=== PATIENT | female | born 1945 | race Caucasian/White ===

== ENCOUNTER 2016-05-10 16:28 | Outpatient (CLI) | payer OTHER | END 2016-05-10 16:29 | disposition home or self-care (01) | DX: S62.011A Displaced fracture of distal pole of navicular [scaphoid] bone of right wrist, initial encounter for closed fracture (principal) ==

== ENCOUNTER 2016-08-28 07:47 | Outpatient (CLI) | payer OTHER ==
[2016-08-28 08:11] LABS: BASOPHILS # (AUTO) 0.1 10^3/uL (0.0-0.1); BASOPHILS % (AUTO) 1.5 %; EOSINOPHILS # (AUTO) 0.1 10^3/uL (0.0-0.7); HGB - HEMOGLOBIN 14.3 g/dL (12.0-16.0); LYMPHOCYTES # (AUTO) 1.3 10^3/uL (1.5-3.5); MEAN CORPUSCULAR HEMOGLOBIN 29.8 pg (27.0-31.0); MEAN CORPUSCULAR HGB CONC 33.2 g/dL (32.0-36.0); MEAN CORPUSCULAR VOLUME 89.6 fL (81.0-99.0); MEAN PLATELET VOLUME 8.2 fL (7.9-10.8); MONOCYTES # (AUTO) 0.4 10^3/uL (0.0-1.0); MONOCYTES % (AUTO) 9.4 %; NEUTROPHILS % (AUTO) 53.1 %; NUCLEATED RED BLOOD CELLS AUTO 0.1 /100WBC; RED CELL DISTRIBUTION WIDTH 13.3 % (12.0-15.0); UNCORRECTED WHITE BLOOD COUNT 3.8 x10^3/uL; WHITE BLOOD COUNT 3.8 x10^3/uL (4.8-10.8)
[2016-08-28 08:21] LABS: ALBUMIN/GLOBULIN RATIO 1.6 (1.0-2.2); BILIRUBIN,TOTAL 0.6 mg/dL (0.2-1.0); CALCIUM 9.4 mg/dL (8.5-10.3); CREATININE 0.8 mg/dL (0.4-1.0); POTASSIUM 3.7 mmol/L (3.5-5.0); TOTAL PROTEIN 7.1 g/dL (6.7-8.2)
== END 2016-08-28 07:48 | disposition home or self-care (01) ==
LOC: LAB 07:47
PROVIDERS: ATTEND Nurse Practitioner Primary Care
DX: Z00.00 Encounter for general adult medical examination without abnormal findings (principal); E03.9 Hypothyroidism, unspecified
CPT/HCPCS: 36415; 80053; 84443; 85025

== ENCOUNTER 2017-09-05 07:55 | Outpatient (CLI) | payer OTHER ==
[2017-09-05 09:09] LABS: BASOPHILS % (AUTO) 1.1 %; EOSINOPHILS # (AUTO) 0.1 10^3/uL (0.0-0.7); EOSINOPHILS % (AUTO) 2.7 %; HGB - HEMOGLOBIN 14.6 g/dL (12.0-16.0); LYMPHOCYTES # (AUTO) 1.3 10^3/uL (1.5-3.5); LYMPHOCYTES % (AUTO) 29.7 %; MEAN CORPUSCULAR HEMOGLOBIN 30.4 pg (27.0-31.0); MEAN CORPUSCULAR VOLUME 89.5 fL (81.0-99.0); MEAN PLATELET VOLUME 8.4 fL (7.9-10.8); MONOCYTES # (AUTO) 0.4 10^3/uL (0.0-1.0); MONOCYTES % (AUTO) 10.3 %; NEUTROPHILS # (AUTO) 2.4 10^3/uL (1.5-6.6); NEUTROPHILS % (AUTO) 56.2 %; PLT - PLATELET COUNT 191 10^3/uL (130-450); RED BLOOD COUNT 4.78 10^6/uL (4.20-5.40); RED CELL DISTRIBUTION WIDTH 13.3 % (12.0-15.0); WHITE BLOOD COUNT 4.3 x10^3/uL (4.8-10.8)
[2017-09-05 09:33] LABS: ALBUMIN 4.5 g/dL (3.2-5.5); ALBUMIN/GLOBULIN RATIO 1.6 (1.0-2.2); ALKALINE PHOSPHATASE 65 IU/L (42-121); ALT ALANINE AMINOTRANSFERASE 18 IU/L (10-60); AST ASPARTATE AMINOTRANSFERASE 21 IU/L (10-42); BILIRUBIN,TOTAL 0.6 mg/dL (0.2-1.0); BUN - BLOOD UREA NITROGEN 16 mg/dL (6-20); CALCIUM 9.2 mg/dL (8.5-10.3); CARBON DIOXIDE - CO2 31 mmol/L (21-32); CHLORIDE 101 mmol/L (101-111); CHOL/HDL RATIO 3.3 (<4.4); CHOLESTEROL 258 mg/dL; CREATININE 0.8 mg/dL (0.4-1.0); GFR - MDRD 71 (>89); GLUCOSE 91 mg/dL (70-100); HDL CHOLESTEROL 79 mg/dL; LDL CHOLESTEROL,CALCULATED 164 mg/dL; LDL/HDL RATIO 2.1 (<4.4); SODIUM 139 mmol/L (135-145); TOTAL PROTEIN 7.4 g/dL (6.7-8.2); VLDL CHOLESTEROL 15 mg/dL
== END 2017-09-05 07:56 | disposition home or self-care (01) ==
LOC: LAB 07:55
PROVIDERS: ATTEND Nurse Practitioner Primary Care
DX: E78.5 Hyperlipidemia, unspecified (principal); E03.9 Hypothyroidism, unspecified; R03.0 Elevated blood-pressure reading, without diagnosis of hypertension; Z79.899 Other long term (current) drug therapy
CPT/HCPCS: 36415; 80053; 80061; 83721; 84443; 85025

== ENCOUNTER 2017-10-16 07:51 | Outpatient (CLI) | payer OTHER ==
--- NOTE | 2017-10-26 19:16 | Mammography Report ---
Reason: SCREENING MAMMO Procedure Date: 10/16/2017 Accession Number: [id number] / [id number] Procedure: MARSHA - Screening Mammo Dig Bilat CPT Code: FULL RESULT: EXAM: Screening Mammo Dig Bilat DATE: 10/16/2017 8:34 AM CLINICAL HISTORY: 72-year-old female with history of right breast needle biopsy. TECHNIQUE: Bilateral CC and MLO views were obtained. COMPARISON: 11/05/2015, 06/27/2013, 05/10/2012, 03/24/2011. FINDINGS: The breasts demonstrate heterogeneously dense fibroglandular parenchyma bilaterally. No suspicious masses, clustered microcalcifications, or regions of architectural distortion are identified. IMPRESSION: Negative examination RECOMMENDATION: Routine annual screening unless otherwise clinically indicated. BIRADS CATEGORY 1: Negative STANDARD QUALIFYING STATEMENTS: 1. This examination was not reviewed with the aid of Computer-Aided Detection (CAD). 2. A negative or benign imaging report should not delay biopsy if clinically suspicious findings are present. Consider surgical consultation if warrented. More than 5% of cancers are not identified by imaging. 3. Dense breasts may obscure an underlying neoplasm. 4. This examination was reviewed with the aid of 3D imaging (tomography).
== END 2017-10-16 07:52 | disposition home or self-care (01) ==
LOC: DI 07:51
PROVIDERS: ATTEND Nurse Practitioner Primary Care
DX: Z12.39 Encounter for other screening for malignant neoplasm of breast (principal)
CPT/HCPCS: 77063; 77067

== ENCOUNTER 2017-10-16 07:53 | Outpatient (CLI) | payer OTHER ==
--- NOTE | 2017-10-16 12:45 | DEXA Report ---
Reason: POSTMENOPAUSAL Procedure Date: 10/16/2017 Accession Number: [id number] / [id number] Procedure: DEX - Dexa Spine and/or Hip CPT Code: FULL RESULT: EXAM: Dexa Spine and/or Hip DATE: 10/16/2017 8:41 AM CLINICAL HISTORY: POSTMENOPAUSAL TECHNIQUE: Dual energy x-ray absorptiometry (DXA) was performed on a [employer] System. Regions measured are the AP Spine, femoral neck, and if needed forearm. COMPARISON: None. In accordance with the International Society for Clinical Densitometry (ISCD) guidelines, data from previous exams may be reanalyzed using current recommendations and techniques. This is done to allow a more accurate basis for comparison with the current study. FINDINGS: The data for the lumbar spine is as follows: BMD (g/cm/cm) T-SCORE Z-SCORE REGION L1 0.860 -2.3 -0.7 L2 0.895 -2.5 -1.0 L3 1.060 -1.2 0.4 L4 1.090 -0.9 0.6 TOTAL 0.986 -1.6 -0.1 NOTE: All evaluable vertebrae are used for classification The data for the hip is as follows: BMD (g/cm/cm) T-SCORE Z-SCORE REGION Neck 0.717 -2.3 -0.7 TOTAL 0.742 -2.1 -0.7 NOTE: The femoral neck or total proximal femur, whichever is lowest, is used for classification. IMPRESSION: THE WHO CLASSIFICATION BASED ON THE INTERNATIONAL REFERENCE STANDARD IS OSTEOPENIA. THE FRACTURE RISK IS INCREASED. RECOMMENDATION: Patients with diagnosis of osteoporosis or osteopenia should have regular bone mineral density assessment. For those eligible for Medicare, routine testing is allowed once every 2 years. Testing frequency can be increased for patients who have rapidly progressing disease or for those who are receiving medical therapy to restore bone mass. COMMENT: World Health Organization (WHO) definitions for osteoporosis and osteopenia: NORMAL BMD: T-score at -1.0 or higher, fracture risk is low OSTEOPENIA BMD: T-score between -1.0 and -2.5, fracture risk is increased. OSTEOPOROSIS BMD: T-score at -2.5 or lower, fracture risk is high. National Osteoporosis Foundation recommends: 1. Obtain adequate dietary calcium (at least 1200 mg per day) and vitamin D (400-800 international units per day). 2. Participate, as appropriate, in regular weightbearing and muscle-strengthening exercise. 3. Avoid tobacco use and reduce alcohol and caffeine intake. 4. For more detailed information see the website at www.NOF.org.
== END 2017-10-16 07:54 | disposition home or self-care (01) ==
LOC: DI 07:53
PROVIDERS: ATTEND Nurse Practitioner Primary Care
DX: M85.89 Other specified disorders of bone density and structure, multiple sites (principal); Z78.0 Asymptomatic menopausal state
CPT/HCPCS: 77080

== ENCOUNTER 2018-02-01 11:02 | Outpatient (CLI) | payer OTHER ==
--- NOTE | 2018-02-01 11:35 | XRAY Report ---
Reason: ANKLE PAIN,LEFT Procedure Date: 02/01/2018 Accession Number: [id number] / [id number] Procedure: XR - Ankle 3 View LT CPT Code: FULL RESULT: EXAM: LEFT ANKLE RADIOGRAPHY EXAM DATE: 02/01/2018 11:13 AM. CLINICAL HISTORY: Left ankle pain. Inverted left ankle. Distal swelling. Bruising. COMPARISON: None. TECHNIQUE: 3 views. FINDINGS: Bones: Oblique nondisplaced fracture is present involving the distal left fibula largely below the level of the tibiotalar joint. Joints: Ankle mortise is well maintained. Left ankle effusion. No dislocation. Soft Tissues: Soft tissue swelling. IMPRESSION: 1. Distal left fibular fracture most likely Jarrett A type fracture. [facility]
== END 2018-02-01 11:03 | disposition home or self-care (01) ==
LOC: DI 11:02
PROVIDERS: ATTEND Physician Assistant Medical
DX: S82.832A Other fracture of upper and lower end of left fibula, initial encounter for closed fracture (principal)

== ENCOUNTER 2018-06-21 12:34 | Outpatient (CLI) | payer MEDICARE, OTHER ==
[2018-06-21 13:19] LABS: ALBUMIN 4.7 g/dL (3.2-5.5); ALBUMIN/GLOBULIN RATIO 1.6 (1.0-2.2); BILIRUBIN,TOTAL 0.8 mg/dL (0.2-1.0); CALCIUM 10.3 mg/dL (8.5-10.3); CREATININE 0.9 mg/dL (0.4-1.0); TOTAL PROTEIN 7.6 g/dL (6.7-8.2)
== END 2018-06-21 12:35 | disposition home or self-care (01) ==
LOC: LAB 12:34
PROVIDERS: ATTEND Nurse Practitioner
DX: I10 Essential (primary) hypertension (principal); E78.5 Hyperlipidemia, unspecified
CPT/HCPCS: 36415; 80053

== ENCOUNTER 2018-06-26 08:45 | Outpatient (CLI) | payer MEDICARE, OTHER ==
[2018-06-26 13:30] LABS: CALCIUM 9.3 mg/dL (8.5-10.3); CARBON DIOXIDE - CO2 31 mmol/L (21-32); CHLORIDE 100 mmol/L (101-111); GLUCOSE 87 mg/dL (70-100); SODIUM 140 mmol/L (135-145)
[2018-06-26 14:12] LABS: ALBUMIN 4.3 g/dL (3.2-5.5); ALBUMIN/GLOBULIN RATIO 1.6 (1.0-2.2); ALKALINE PHOSPHATASE 69 IU/L (42-121); ALT ALANINE AMINOTRANSFERASE 18 IU/L (10-60); AST ASPARTATE AMINOTRANSFERASE 24 IU/L (10-42); BILIRUBIN,TOTAL 1.1 mg/dL (0.2-1.0); BUN - BLOOD UREA NITROGEN 16 mg/dL (6-20); CHOL/HDL RATIO 3.4 (<4.4); CHOLESTEROL 257 mg/dL; GFR - MDRD 55 (>89); HDL CHOLESTEROL 75 mg/dL; LDL CHOLESTEROL,CALCULATED 168 mg/dL; LDL/HDL RATIO 2.2 (<4.4); VLDL CHOLESTEROL 14 mg/dL
== END 2018-06-26 08:46 | disposition home or self-care (01) ==
LOC: LAB.F 08:45
PROVIDERS: ATTEND Nurse Practitioner
DX: I10 Essential (primary) hypertension (principal); E78.5 Hyperlipidemia, unspecified
CPT/HCPCS: 36415; 80053; 80061; 83721

== ENCOUNTER 2018-12-05 09:41 | Outpatient (CLI) | payer MEDICARE, OTHER ==
[2018-12-05 18:18] LABS: ALBUMIN 4.3 g/dL (3.2-5.5); ALBUMIN/GLOBULIN RATIO 1.3 (1.0-2.2); ALKALINE PHOSPHATASE 70 IU/L (42-121); ALT ALANINE AMINOTRANSFERASE 20 IU/L (10-60); AST ASPARTATE AMINOTRANSFERASE 21 IU/L (10-42); BILIRUBIN,TOTAL 0.8 mg/dL (0.2-1.0); BUN - BLOOD UREA NITROGEN 16 mg/dL (6-20); CALCIUM 9.2 mg/dL (8.5-10.3); CARBON DIOXIDE - CO2 32 mmol/L (21-32); CHLORIDE 103 mmol/L (101-111); CHOL/HDL RATIO 4.3 (<4.4); CHOLESTEROL 263 mg/dL; CREATININE 0.8 mg/dL (0.4-1.0); GFR - MDRD 71 (>89); GLUCOSE 91 mg/dL (70-100); HDL CHOLESTEROL 61 mg/dL; LDL CHOLESTEROL,CALCULATED 171 mg/dL; LDL/HDL RATIO 2.8 (<4.4); SODIUM 139 mmol/L (135-145); TOTAL PROTEIN 7.5 g/dL (6.7-8.2); VLDL CHOLESTEROL 31 mg/dL
== END 2018-12-05 09:42 | disposition home or self-care (01) ==
LOC: LAB.S 09:41
PROVIDERS: ATTEND Nurse Practitioner
DX: I10 Essential (primary) hypertension (principal); Z79.899 Other long term (current) drug therapy; E78.5 Hyperlipidemia, unspecified; E03.9 Hypothyroidism, unspecified
CPT/HCPCS: 36415; 80053; 80061; 83721; 84443

== ENCOUNTER 2020-01-02 07:00 | Outpatient (CLI) | payer MEDICARE, OTHER | END 2020-01-02 23:59 | disposition home or self-care (01) | LOC: LAB.R 07:00 | PROVIDERS: ATTEND Physician Assistant | DX: R30.0 Dysuria (principal) | CPT/HCPCS: 87077; 87086; 87181 ==

== ENCOUNTER 2020-01-19 08:00 | Outpatient (CLI) | payer BC, MEDICARE, OTHER ==
--- OUTSIDE RECORDS SUMMARY | 2020-02-18 01:43 | EXTERNAL MEDICAL SUMMARY RPT | Continuity of Care Document ---
:1945 Demographics Phone Unavailable Preferred Language Korean Marital Status Unknown Zoroastrianism Affiliation Unknown Race Unknown Ethnic Group Unknown Author Organization [address] [address] [place] [address] Phone Care Team Providers Name Role Phone Morrison Unavailable Unavailable MD Unavailable Unavailable [place] Unavailable Unavailable Problems date description facility 2020-01-02 00:00 DYSURIA [facility] [place] 2020-01-02 00:00:00 Urine C[facility]S [facility] 2020-01-02 00:00:00 Dysuria [facility] 2020-01-02 00:00:00 Alcohol intake [facility] 2020-01-02 00:00:00 Health-related behavior [facility] 2020-01-02 00:00:00 Tobacco use and exposure [facility] [place] [facility] 2020-01-02 00:00:00 Exercise [facility] 2020-01-02 00:00:00 Never smoker [facility] 2020-01-02 00:00:00 Alcohol use [facility] 2020-01-02 00:00:00 Tobacco smoking status NHIS [facility] 2020-01-02 07:00 DYSURIA [facility] [place] 2020-01-19 00:00 HEMATURIA, UNSPECIFIED [facility] 2020-01-19 00:00:00 Enthesopathy of hip region [facility] 2020-01-19 00:00:00 Other personal history of [facility] disorders of urinary system [facility] 2020-01-19 00:00:00 Urinalysis with Microscopic [facility] 2020-01-19 00:00:00 Psoas tendinitis, left hip [facility] [place] [facility] 2020-01-19 00:00:00 Hematuria, unspecified [facility] [place] [facility] 2020-01-19 00:00:00 Personal history of other [facility] diseases of urinary system [place] [facility] 2020-01-19 00:00:00 Tobacco [facility] and exposure [facility] [place] [facility] 2020-01-19 00:00:00 Never smoker [facility] [place] [facility] 2020-01-19 00:00:00 H/O: urinary disease [facility] [place] [facility] 2020-01-19 00:00:00 Hematuria syndrome [facility] [place] [facility] 2020-01-19 00:00:00 Psoas tendinitis [facility] [place] [facility] 2020-01-19 08:00 HEMATURIA, UNSPECIFIED [facility] 2020-01-19 08:00 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 2020-01-21 13:47 HEMATURIA, UNSPECIFIED [facility] Medications date description facility 2020-01-06 00:00:00 null [facility] [place] [facility] 2020-01-06 00:00:00 null [facility] [place] [facility] 2020-01-06 00:00:00 NITROFURANTOIN MONOHYD MACRO [facility] [place] [facility] 2020-01-06 00:00:00 NITROFURANTOIN MONOHYD MACRO [facility] [place] [facility] Procedures date description facility 2020-01-02 00:00:00 Urine C&S [facility] [place] [facility] date description facility 2020-01-02 00:00:00 [facility] [place] [facility] date description facility 2020-01-19 00:00:00 Urinalysis with Microscopic [facility] [place] [facility] date description facility 2020-01-19 00:00:00 POC URINALYSIS NAUTO W[facility] [place] [facility] date description facility 2020-01-19 00:[facility] [place] [facility] Results test status date ordered by attending specimen deborah e null F 2020-01-02 11:00:00 COLLINS.12 Servando Jett 2 15:17:00 null F 2020-01-02 11:00:00 COLLINS.12 Servando Jett 2 15:17:00 null F 2020-01-02 11:00:00 COLLINS.12 Servando Jett 2 15:17:00 null F 2020-01-02 11:00:00 COLLINS.12 Servando Jett 2 15:17:00 null F 2020-01-02 11:00:00 COLLINS.12 Servando Jett 2 15:17:00 null F 2020-01-02 11:00:00 COLLINS.12 Servando Jett 2 15:17:00 null P 2020-01-02 11:00:00 COLLINS.12 Servando Jett 2 15:17:00 null P 2020-01-02 11:00:00 COLLINS.12 Servando Jett 2 15:17:00 null P 2020-01-02 11:00:00 COLLINS.12 Servando Jett 2 15:17:00 null P 2020-01-02 11:00:00 COLLINS.12 Servando Jett 2 15:17:00 null P 2020-01-02 11:00:00 COLLINS.12 Servando Jett 2 15:17:00 null P 2020-01-02 11:00:00 COLLINS.12 Servando Jett 2 15:17:00 null P 2020-01-02 11:00:00 COLLINS.12 Servando Jett 2 15:17:00 null P 2020-01-02 11:00:00 COLLINS.12 Servando Jett 2 15:17:00 null P 2020-01-02 11:00:00 COLLINS.12 Servando Jett 2 15:17:00 null P 2020-01-02 11:00:00 COLLINS.12 Servando Jett 2 15:17:00 null P 2020-01-02 11:00:00 COLLINS.12 Servando Jett 2 15:17:00 null P 2020-01-02 11:00:00 COLLINS.12 Servando Jett 2 15:17:00 null P 2020-01-02 11:00:00 COLLINS.12 Servando Jett 2 15:17:00 null P 2020-01-02 11:00:00 COLLINS.12 Servando Jett 2 15:17:00 facility observation status value reference units lab abnor mal line range code notes [facility] GROUP D [facility] STREPTOCOCCUS. [facility] GenericComposit [facility] e[10^10,000-50,0 00 CFU/mL] [facility] e[UCC.6^COLONY COUNT] [facility] STREPTOCOCCUS [facility] GALLOLYTICUS SSP PASTEUR IS NONENTEROCOCCAL [facility] [STRPAS^STREP GALLOLYTICUS SSP PASTEUR^STREP GALLOLYTICUS SSP PASTEUR] [facility] CULTURE IN unknown Medical Center PROGRESS. RESULTS TO FOLLOW. [facility] GROUP D unknown Medical Center STREPTOCOCCUS. [facility] e[10^10,000-50,0 00 CFU/mL] [facility] e[GP^GRAM POSITIVE GROWTH TO BE FURTHER IDENTIFIED] [facility] e[IDMIC.1^ORG 1 ID/JASMYNE COM*] [facility] GenericComposit [facility] e[IDMIC^ID/JASMYNE COM*] [facility] GenericComposit [facility] e[ORG.1^PRELIM ORG ID*] [facility] P GenericComposit [facility] e[SENSI^SENSITIV ITIES TO FOLLOW] [facility] e[UCC.1^ORG 1 CC*] [facility] P GenericComposit [facility] e[UCC.6^COLONY COUNT] [facility] P GenericComposit unknown Medical Center e[Y^IDENTIFICATI ON AND SENSITIVITIES TO FOLLOW] [facility] unknown Medical Center GALLOLYTICUS SSP PASTEUR IS NONENTEROCOCCAL [facility] GenericComposite unknown Medical Center [STRPAS^STREP GALLOLYTICUS SSP PASTEUR^STREP GALLOLYTICUS SSP PASTEUR] test status date ordered by attending specimen deborah e null F 2020-01-02 11:00:00 COLLINS.12 Servando Jett 2 15:17:00 null F 2020-01-02 11:00:00 COLLINS.12 Servando Jett 2 15:17:00 null F 2020-01-02 11:00:00 COLLINS.12 Servando Jett 2 15:17:00 null F 2020-01-02 11:00:00 COLLINS.12 Servando Jett 2 15:17:00 null F 2020-01-02 11:00:00 COLLINS.12 Servando Jett 2 15:17:00 null F 2020-01-02 11:00:00 COLLINS.12 Servando Jett 2 15:17:00 null F 2020-01-02 11:00:00 COLLINS.12 Servando Jett 2 15:17:00 null F 2020-01-02 11:00:00 COLLINS.12 Servando Jett 2 15:17:00 facility observation status value reference units lab abnor mal line range code notes [facility] cCompos ite[^<= 0.25] [facility] cCompos ite[^<= 0.12] [facility] cCompos ite[^>= 8] [facility] cCompos ite[^4] [facility] Center cCompos ite[^0. 5] [facility] Center cCompos ite[^<= 0.06] [facility] Center cCompos ite[^0. 5] [facility]0. 25] test status date ordered by attending specimen deborah e null F 2020-01-21 DIXO.01 Cody Morrison 13:57:00 13:57:00 null F 2020-01-21 DIXO.01 Cody Morrison 13:57:00 13:57:00 null F 2020-01-21 DIXO.01 Cody Morrison 13:57:00 13:57:00 null F 2020-01-21 DIXO.01 Cody Morrison 13:57:00 13:57:00 null F 2020-01-21 DIXO.01 Cody Morrison 13:57:00 13:57:00 null F 2020-01-21 DIXO.01 Cody Morrison 13:57:00 13:57:00 null F 2020-01-21 DIXO.01 Cody Morrison 13:57:00 13:57:00 null F 2020-01-21 DIXO.01 Cody Morrison 13:57:00 13:57:00 null F 2020-01-21 DIXO.01 Cody Morrison 13:57:00 13:57:00 null F 2020-01-21 DIXO.01 Cody Morrison 13:57:00 13:57:00 null F 2020-01-21 DIXO.01 Cody Morrison 13:57:00 13:57:00 null F 2020-01-21 DIXO.01 Cody Morrison 13:57:00 13:57:00 null F 2020-01-21 DIXO.01 Cody Morrison 13:57:00 13:57:00 null F 2020-01-21 DIXO.01 Cody Morrison 13:57:00 13:57:00 null F 2020-01-21 DIXO.01 Cody Morrison 13:57:00 13:57:00 null F 2020-01-21 DIXO.01 Cody Morrison 13:57:00 13:57:00 facility observation status value reference units lab abnor mal line range code notes [facility] F None Seen None Seen /HPF [facility] F NEGATIVE NEGATIVE [facility] F CLEAR CLEAR [facility] F YELLOW unknown [facility] F NEGATIVE NEGATIVE mg/dL [facility] F NEGATIVE NEGATIVE mg/dL [facility] F NEGATIVE NEGATIVE [facility] F NEGATIVE NEGATIVE [facility] F NEGATIVE NEGATIVE [facility] F 7.0 5.0-7.5 PH [facility] F NEGATIVE NEGATIVE mg/dL [facility] F None Seen 0-5 /HPF [facility] F 1.010 1.002-1.03 Medical Center 0 [facility] F NONE SEEN <= [facility] F 0.2 NORMAL E.U./d [facility] Center (NORMAL) L [facility] F 0-3 0-5 /HPF Medical Center test status date ordered by attending specimen deborah e DIPSTICK_URINE_S unknown 2020-01-02 unknown unknown unkno wn TRIP_LOT_NUMBER 00:00:00 protein_urine_se unknown 2020-01-02 unknown unknown unkno wn miquantitative_di 00:00:00 pstick_ glucose_urine_se unknown 2020-01-02 unknown unknown unkno wn miquantitative 00:00:00 Erythrocytes_are unknown 2020-01-02 unknown unknown unkno wn a_in_Urine_sedime 00:00:00 nt_by_Microscopy_ high_power_field RBC_urine_dipsti unknown 2020-01-02 unknown unknown unkno wn ck 00:00:00 Albumin_Presence unknown 2020-01-02 unknown unknown unkno wn _in_Urine 00:00:00 urine_color unknown 2020-01-02 unknown unknown unknown 00:00:00 bilirubin_urine unknown 2020-01-02 unknown unknown unknow n 00:00:00 ketones_urine_by unknown 2020-01-02 unknown unknown unkno wn _test_strip 00:00:00 nitrite_urine_se unknown 2020-01-02 unknown unknown unkno wn miquantitative 00:00:00 pH_urine_semiqua unknown 2020-01-02 unknown unknown unkno wn ntitative 00:00:00 specific_gravity unknown 2020-01-02 unknown unknown unkno wn _urine 00:00:00 urobilinogen_uri unknown 2020-01-02 unknown unknown unkno wn ne_semiquantitati 00:00:00 ve_dipstick_ leukocyte_estera unknown 2020-01-02 unknown unknown unkno wn se_urine_by_dipst 00:00:00 ick appearance_urine unknown 2020-01-02 unknown unknown unkno wn 00:00:00 urinalysis_routi unknown 2020-01-02 unknown unknown unkno wn ne 00:00:00 Appearance_of_Ur unknown 2020-01-02 unknown unknown unkno wn ine 00:00:00 Bilirubin.total_ unknown 2020-01-02 unknown unknown unkno wn Presence_in_Urine 00:00:00 _by_Test_strip Color_of_Urine unknown 2020-01-02 unknown unknown unknown 00:00:00 Glucose_Mass_vol unknown 2020-01-02 unknown unknown unkno wn ume_in_Urine_by_T 00:00:00 est_strip Ketones_Mass_vol unknown 2020-01-02 unknown unknown unkno wn ume_in_Urine_by_T 00:00:00 est_strip Leukocyte_estera unknown 2020-01-02 unknown unknown unkno wn se_Presence_in_Ur 00:00:00 ine_by_Test_strip Nitrite_Presence unknown 2020-01-02 unknown unknown unkno wn _in_Urine_by_Test 00:00:00 _strip pH_of_Urine_by_T unknown 2020-01-02 unknown unknown unkno wn est_strip 00:00:00 Specific_gravity unknown 2020-01-02 unknown unknown unkno wn _of_Urine_by_Test 00:00:00 _strip Urobilinogen_Pre unknown 2020-01-02 unknown unknown unkno wn sence_in_Urine_by 00:00:00 _Test_strip DIPSTICK_URINE_S unknown 2020-01-19 unknown unknown unkno wn TRIP_LOT_NUMBER 00:00:00 Urine_HCG_QC_Res unknown 2020-01-19 unknown unknown unkno wn ult_CLIA_Waived_ 00:00:00 protein_urine_se unknown 2020-01-19 unknown unknown unkno wn miquantitative_di 00:00:00 pstick_ glucose_urine_se unknown 2020-01-19 unknown unknown unkno wn miquantitative 00:00:00 Erythrocytes_are unknown 2020-01-19 unknown unknown unkno wn a_in_Urine_sedime 00:00:00 nt_by_Microscopy_ high_power_field RBC_urine_dipsti unknown 2020-01-19 unknown unknown unkno wn ck 00:00:00 Albumin_Presence unknown 2020-01-19 unknown unknown unkno wn _in_Urine 00:00:00 urine_color unknown 2020-01-19 unknown unknown unknown 00:00:00 bilirubin_urine unknown 2020-01-19 unknown unknown unknow n 00:00:00 ketones_urine_by unknown 2020-01-19 unknown unknown unkno wn _test_strip 00:00:00 nitrite_urine_se unknown 2020-01-19 unknown unknown unkno wn miquantitative 00:00:00 pH_urine_semiqua unknown 2020-01-19 unknown unknown unkno wn ntitative 00:00:00 specific_gravity unknown 2020-01-19 unknown unknown unkno wn _urine 00:00:00 urobilinogen_uri unknown 2020-01-19 unknown unknown unkno wn ne_semiquantitati 00:00:00 ve_dipstick_ leukocyte_estera unknown 2020-01-19 unknown unknown unkno wn se_urine_by_dipst 00:00:00 ick appearance_urine unknown 2020-01-19 unknown unknown unkno wn 00:00:00 urinalysis_routi unknown 2020-01-19 unknown unknown unkno wn ne 00:00:00 culture_status unknown 2020-01-19 unknown unknown unknown 00:00:00 Appearance_of_Ur unknown 2020-01-19 unknown unknown unkno wn ine 00:00:00 Bilirubin.total_ unknown 2020-01-19 unknown unknown unkno wn Presence_in_Urine 00:00:00 _by_Test_strip Color_of_Urine unknown 2020-01-19 unknown unknown unknown 00:00:00 Glucose_Mass_vol unknown 2020-01-19 unknown unknown unkno wn ume_in_Urine_by_T 00:00:00 est_strip Ketones_Mass_vol unknown 2020-01-19 unknown unknown unkno wn ume_in_Urine_by_T 00:00:00 est_strip Leukocyte_estera unknown 2020-01-19 unknown unknown unkno wn se_Presence_in_Ur 00:00:00 ine_by_Test_strip Nitrite_Presence unknown 2020-01-19 unknown unknown unkno wn _in_Urine_by_Test 00:00:00 _strip pH_of_Urine_by_T unknown 2020-01-19 unknown unknown unkno wn est_strip 00:00:00 Specific_gravity unknown 2020-01-19 unknown unknown unkno wn _of_Urine_by_Test 00:00:00 _strip Urobilinogen_Pre unknown 2020-01-19 unknown unknown unkno wn sence_in_Urine_by 00:00:00 _Test_strip BILIRUBIN_URINE unknown 2020-01-21 unknown unknown unknow n 00:00:00 CLARITY_URINE unknown 2020-01-21 unknown unknown unknown 00:00:00 COLOR_URINE unknown 2020-01-21 unknown unknown unknown 00:00:00 GLUCOSE_URINE_UA unknown 2020-01-21 unknown unknown unkno wn _ 00:00:00 KETONES_URINE_UA unknown 2020-01-21 unknown unknown unkno wn _ 00:00:00 LEUKOCYTE_ESTERA unknown 2020-01-21 unknown unknown unkno wn SE_URINE 00:00:00 NITRITE_URINE unknown 2020-01-21 unknown unknown unknown 00:00:00 PH_URINE unknown 2020-01-21 unknown unknown unknown 00:00:00 T unknown 2020-01-21 unknown unknown unknown 00:00:00 T unknown 2020-01-21 unknown unknown unknown 00:00:00 T unknown 2020-01-21 unknown unknown unknown 00:00:00 T unknown 2020-01-21 unknown unknown unknown 00:00:00 T unknown 2020-01-21 unknown unknown unknown 00:00:00 T unknown 2020-01-21 unknown unknown unknown 00:00:00 T unknown 2020-01-21 unknown unknown unknown 00:00:00 T unknown 2020-01-21 unknown unknown unknown 00:00:00 T unknown 2020-01-21 unknown unknown unknown 00:00:00 T unknown 2020-01-21 unknown unknown unknown 00:00:00 T unknown 2020-01-21 unknown unknown unknown 00:00:00 SPECIFIC_GRAVITY unknown 2020-01-21 unknown unknown unkno wn _URINE 00:00:00 UROBILINOGEN_URI unknown 2020-01-21 unknown unknown unkno wn NE 00:00:00 WBC_URINE unknown 2020-01-21 unknown unknown unknown 00:00:00 WBC_urine_on_mic unknown 2020-01-21 unknown unknown unkno wn roscopy 00:00:00 Glucose_Mass_vol unknown 2020-01-21 unknown unknown unkno wn ume_in_Urine 00:00:00 urine_color unknown 2020-01-21 unknown unknown unknown 00:00:00 bilirubin_urine unknown 2020-01-21 unknown unknown unknow n 00:00:00 ketones_urine_by unknown 2020-01-21 unknown unknown unkno wn _test_strip 00:00:00 nitrite_urine_se unknown 2020-01-21 unknown unknown unkno wn miquantitative 00:00:00 specific_gravity unknown 2020-01-21 unknown unknown unkno wn _urine 00:00:00 urobilinogen_uri unknown 2020-01-21 unknown unknown unkno wn ne_semiquantitati 00:00:00 ve_dipstick_ leukocyte_estera unknown 2020-01-21 unknown unknown unkno wn se_urine_by_dipst 00:00:00 ick glucose_urine unknown 2020-01-21 unknown unknown unknown 00:00:00 pH_study_of_acid unknown 2020-01-21 unknown unknown unkno wn ity 00:00:00 clarity_urine_po unknown 2020-01-21 unknown unknown unkno wn int 00:00:00 Bilirubin.total_ unknown 2020-01-21 unknown unknown unkno wn Presence_in_Urine 00:00:00 _by_Test_strip Color_of_Urine unknown 2020-01-21 unknown unknown unknown 00:00:00 Ketones_Mass_vol unknown 2020-01-21 unknown unknown unkno wn ume_in_Urine_by_T 00:00:00 est_strip Leukocyte_estera unknown 2020-01-21 unknown unknown unkno wn se_Presence_in_Ur 00:00:00 ine_by_Test_strip Nitrite_Presence unknown 2020-01-21 unknown unknown unkno wn _in_Urine_by_Test 00:00:00 _strip Specific_gravity unknown 2020-01-21 unknown unknown unkno wn _of_Urine_by_Test 00:00:00 _strip Urobilinogen_Pre unknown 2020-01-21 unknown unknown unkno wn sence_in_Urine_by 00:00:00 _Test_strip WBC_urine_on_mic unknown 2020-01-21 unknown unknown unkno wn roscopy 00:00:00 facility observation status value reference units lab code abn ormal line range notes [facility] DIPSTICK_UR unknown 4071 unknown _101400 unknown unknown [facility] INE_STRIP_LO [place] [facility] T_NUMBER [facility] protein_uri unknown negative unknown _118 unknown unknown [facility] ne_semiquant [place] [facility] itative_dips tick_ [facility] glucose_uri unknown negative unknown _123 unknown unknown [facility] ne_semiquant [place] [facility] itative [facility] Erythrocyte unknown negative unknown _13945- 1 unknown unknown [facility] s_area_in_Ur [place] [facility] ine_sediment _by_Microsco py_high_powe r_field [facility] RBC_urine_d unknown negative unknown _170000 5 unknown unknown [facility] ipstick [place] [facility] Albumin_Pre unknown negative unknown _1753-3 unknown unknown [facility] sence_in_Uri [place] [facility] ne [facility] urine_color unknown yellow unknown _2751 u nknown unknown [facility] [place] [facility] bilirubin_u unknown negative unknown _319 unknown unknown [facility] rine [place] [facility] ketones_uri unknown negative unknown _322 unknown unknown [facility] ne_by_test_s [place] [facility] trip [facility] nitrite_uri unknown negative unknown _323 unknown unknown [facility] ne_semiquant [place] [facility] itative [facility] pH_urine_se unknown 6 unknown _324 u nknown unknown [facility] miquantitati [place] [facility] ve [facility] specific_gr unknown 1.015 unknown _325 u nknown unknown [facility] avity_urine [place] [facility] urobilinoge unknown negative unknown _326 unknown unknown [facility] n_urine_semi [place] [facility] quantitative _dipstick_ [facility] leukocyte_e unknown trace unknown _327 u nknown unknown [facility] sterase_urin [place] [facility] e_by_dipstic k [facility] appearance_ unknown clear unknown _328 u nknown unknown [facility] urine [place] [facility] urinalysis_ unknown Clean unknown _47 u nknown unknown [facility] routine Catch [place] [facility] Appearance_ unknown clear unknown _5767-9 unknown unknown [facility] of_Urine [place] [facility] Bilirubin.t unknown negative unknown _5770-3 unknown unknown [facility] otal_Presenc [place] [facility] e_in_Urine_b y_Test_strip [facility] Color_of_Ur unknown yellow unknown _5778-6 unknown unknown [facility] ine [place] [facility] Glucose_Mas unknown negative unknown _5792-7 unknown unknown [facility] s_volume_in_ [place] [facility] Urine_by_Tes t_strip [facility] Ketones_Mas unknown negative unknown _5797-6 unknown unknown [facility] s_volume_in_ [place] [facility] Urine_by_Tes t_strip [facility] Leukocyte_e unknown trace unknown _5799-2 unknown unknown [facility] sterase_Pres [place] [facility] ence_in_Urin e_by_Test_st rip [facility] Nitrite_Pre unknown negative unknown _5802-4 unknown unknown [facility] sence_in_Uri [place] [facility] ne_by_Test_s trip [facility] pH_of_Urine unknown 6 unknown _5803-2 unknown unknown [facility] _by_Test_str [place] [facility] ip [facility] Specific_gr unknown 1.015 unknown _5811-5 unknown unknown [facility] avity_of_Uri [place] [facility] ne_by_Test_s trip [facility] Urobilinoge unknown negative unknown _5818-0 unknown unknown [facility] n_Presence_i [place] [facility] n_Urine_by_T est_strip [facility] DIPSTICK_UR unknown [id number] unknown _101400 unknown unknown [facility] INE_STRIP_LO [place] [facility] T_NUMBER [facility] Urine_HCG_Q unknown Yes unknown _114942 unknown unknown [facility] C_Result_CLI [place] [facility] A_Waived_ [facility] protein_uri unknown negative unknown _118 unknown unknown [facility] ne_semiquant [place] [facility] itative_dips tick_ [facility] glucose_uri unknown negative unknown _123 unknown unknown [facility] ne_semiquant [place] [facility] itative [facility] Erythrocyte unknown negative unknown _13945- 1 unknown unknown [facility] s_area_in_Ur [place] [facility] ine_sediment _by_Microsco py_high_powe r_field [facility] RBC_urine_d unknown negative unknown _170000 5 unknown unknown [facility] ipstick [place] [facility] Albumin_Pre unknown negative unknown _1753-3 unknown unknown [facility] sence_in_Uri [place] [facility] ne [facility] urine_color unknown light unknown _2751 u nknown unknown [facility] yellow [place] [facility] bilirubin_u unknown negative unknown _319 unknown unknown [facility] rine [place] [facility] ketones_uri unknown negative unknown _322 unknown unknown [facility] ne_by_test_s [place] [facility] trip [facility] nitrite_uri unknown negative unknown _323 unknown unknown [facility] ne_semiquant [place] [facility] itative [facility] pH_urine_se unknown 8 unknown _324 u nknown unknown [facility] miquantitati [place] [facility] ve [facility] specific_gr unknown 1.005 unknown _325 u nknown unknown [facility] avity_urine [place] [facility] urobilinoge unknown negative unknown _326 unknown unknown [facility] n_urine_semi [place] [facility] quantitative _dipstick_ [facility] leukocyte_e unknown negative unknown _327 unknown unknown [facility] sterase_urin [place] [facility] e_by_dipstic k [facility] appearance_ unknown clear unknown _328 u nknown unknown [facility] urine [place] [facility] urinalysis_ unknown Clean unknown _47 u nknown unknown [facility] routine Catch [place] [facility] culture_sta unknown No unknown _51015 u nknown unknown [facility] tus [place] [facility] Appearance_ unknown clear unknown _5767-9 unknown unknown [facility] of_Urine [place] [facility] Bilirubin.t unknown negative unknown _5770-3 unknown unknown [facility] otal_Presenc [place] [facility] e_in_Urine_b y_Test_strip [facility] Color_of_Ur unknown light unknown _5778-6 unknown unknown [facility] ine yellow [place] [facility] Glucose_Mas unknown negative unknown _5792-7 unknown unknown [facility] s_volume_in_ [place] [facility] Urine_by_Tes t_strip [facility] Ketones_Mas unknown negative unknown _5797-6 unknown unknown [facility] s_volume_in_ [place] [facility] Urine_by_Tes t_strip [facility] Leukocyte_e unknown negative unknown _5799-2 unknown unknown [facility] Care sterase_Pres [place] [facility] ence_in_Urin e_by_Test_st rip [facility] Nitrite_Pre unknown negative unknown _5802-4 unknown unknown [facility] sence_in_Uri [place] [facility] ne_by_Test_s trip [facility] pH_of_Urine unknown 8 unknown _5803-2 unknown unknown [facility] _by_Test_str [place] [facility] ip [facility] Specific_gr unknown 1.005 unknown _5811-5 unknown unknown [facility] avity_of_Uri [place] [facility] ne_by_Test_s trip [facility] Urobilinoge unknown negative unknown _5818-0 unknown unknown [facility] n_Presence_i [place] [facility] n_Urine_by_T est_strip [facility] NEGAT[facility] unknown UBIL unknown unknown [facility] RINE [place] [facility] CLARITY_URI unknown CLEAR unknown UCLAR u nknown unknown [facility] NE [place] [facility] COLOR_URINE unknown YELLOW unknown UCOL u nknown unknown [facility] [place] [facility] GLUCOSE_URI unknown NEGATIVE unknown UGLUC unknown unknown Primary [facility] NE_UA_ mg/dL [place] [facility] KETONES_URI unknown NEGATIVE unknown UKET unknown unknown [facility] NE_UA_ [place] [facility] LEUKOCYTE_E unknown NEGATIVE unknown ULEUK unknown unknown [facility] STERASE_URIN [place] [facility] E [facility] NITRITE_URI unknown NEGATIVE unknown UNITRIT E unknown unknown [facility] NE [place] [facility] PH_URINE unknown 7.0 unknown UPH unkn own unknown [facility] [place] [facility] T unknown NEGATIVE unknown UR_BILI unk nown unknown [facility] [place] [facility] T unknown CLEAR unknown UR_CLARI unkn own unknown [facility] TY [place] [facility] T [facility] YELLOW unknown UR_COLOR unkn own unknown [facility] [place] [facility] T unknown NEGATIVE unknown UR_GLU unkn own unknown [facility] mg/dL [place] [facility] T unknown NEGATIVE unknown UR_KETO_ un known unknown [facility] UA_ [place] [facility] T unknown NEGATIVE unknown UR_LEU_E un known unknown [facility] STERASE [place] [facility] T unknown NEGATIVE unknown UR_NIT unkn own unknown [facility] [place] [facility] T unknown 7.0 unknown UR_PH unknow n unknown [facility] [place] [facility] T unknown 1.010 unknown UR_SG unknow n unknown [facility] [place] [facility] T unknown 0.2 unknown UR_URO unknow n unknown [facility] (NORMAL) [place] [facility] T unknown 0-3 /HPF unknown UR_WBC unkn own unknown [facility] [place] [facility] SPECIFIC_GR unknown 1.010 unknown USG u nknown unknown [facility] AVITY_URINE [place] [facility] UROBILINOGE unknown 0.2 unknown UUROBIL unknown unknown [facility] N_URINE (NORMAL) [place] [facility] WBC_URINE unknown 0-3 /HPF unknown UWBC u nknown unknown [facility] [place] [facility] WBC_urine_o unknown 0-3 /HPF unknown _1016 unknown unknown [facility] n_microscopy [place] [facility] Glucose_Mas unknown NEGATIVE unknown _2350-7 unknown unknown [facility] s_volume_in_ mg/dL [place] [facility] Urine [facility] urine_color unknown YELLOW unknown _2751 u nknown unknown [facility] [place] [facility] bilirubin_u unknown NEGATIVE unknown _319 unknown unknown [facility] rine [place] [facility] ketones_uri unknown NEGATIVE unknown _322 unknown unknown [facility] ne_by_test_s [place] [facility] trip [facility] nitrite_uri unknown NEGATIVE unknown _323 unknown unknown [facility] ne_semiquant [place] [facility] itative [facility] specific_gr unknown 1.010 unknown _325 u nknown unknown [facility] avity_urine [place] [facility] urobilinoge unknown 0.2 unknown _326 u nknown unknown [facility] n_urine_semi (NORMAL) [place] [facility] quantitative _dipstick_ [facility] leukocyte_e unknown NEGATIVE unknown _327 unknown unknown [facility] sterase_urin [place] [facility] e_by_dipstic k [facility] glucose_uri unknown NEGATIVE unknown _3369 unknown unknown Primary [facility] ne mg/dL [place] [facility] pH_study_of unknown 7.0 unknown _51641 u nknown unknown Primary Care _acidity [place] [facility] clarity_uri unknown CLEAR unknown _5589 u nknown unknown [facility] ne_point [place] [facility] Bilirubin.t unknown NEGATIVE unknown _5770-3 unknown unknown [facility] otal_Presenc [place] [facility] e_in_Urine_b y_Test_strip [facility] Color_of_Ur unknown YELLOW unknown _5778-6 unknown unknown [facility] ine [place] [facility] Ketones_Mas unknown NEGATIVE unknown _5797-6 unknown unknown [facility] s_volume_in_ [place] [facility] Urine_by_Tes t_strip [facility] Leukocyte_e unknown NEGATIVE unknown _5799-2 unknown unknown Primary Care sterase_Pres [place] [facility] ence_in_Urin e_by_Test_st rip [facility] Nitrite_Pre unknown NEGATIVE unknown _5802-4 unknown unknown [facility] sence_in_Uri [place] [facility] ne_by_Test_s trip [facility] Specific_gr unknown 1.010 unknown _5811-5 unknown unknown [facility] avity_of_Uri [place] [facility] ne_by_Test_s trip [facility] Urobilinoge unknown 0.2 unknown _5818-0 unknown unknown [facility] n_Presence_i (NORMAL) [facility] n_Urine_by_T est_strip [facility] WBC_urine_o unknown 0-3 /HPF unknown _5821-4 unknown unknown Primary [facility] n_microscopy [facility] Social History date description facility 2020-01-02 00:00:00 Never smoker [facility] [place] [facility] date description facility 2020-01-19 00:00:00 Never smoker [facility] Social History date description facility 2020-01-02 00:00:00 Never smoker [facility] date description facility 2020-01-19 00:00:00 Never smoker [facility] date description facility [id number]
== END 2020-01-19 23:59 | disposition home or self-care (01) ==
LOC: LAB.R 08:00
PROVIDERS: ATTEND Internal Medicine
DX: R31.9 Hematuria, unspecified (principal); Z87.448 Personal history of other diseases of urinary system
CPT/HCPCS: 81001; 81002

== ENCOUNTER 2020-01-21 13:47 | Outpatient (CLI) | payer MEDICARE, BC ==
[2020-01-21 20:21] LABS: BILIRUBIN,URINE NEGATIVE (NEGATIVE); GLUCOSE, URINE (UA) NEGATIVE (NEGATIVE); KETONES,URINE (UA) NEGATIVE (NEGATIVE); LEUKOCYTE ESTERASE, URINE NEGATIVE (NEGATIVE); NITRITE,URINE NEGATIVE (NEGATIVE); OCCULT BLOOD,URINE NEGATIVE (NEGATIVE); PROTEIN,URINE NEGATIVE (NEGATIVE); UROBILINOGEN,URINE 0.2 (NORMAL) E.U./dL (NORMAL)
[2020-01-21 20:39] LABS: BACTERIA,URINE None Seen /HPF (None Seen); CLARITY,URINE CLEAR (CLEAR); RBC,URINE None Seen /HPF (0-5); SQUAMOUS EPITHELIAL CELL,UR NONE SEEN (<= Few)
== END 2020-01-21 13:48 | disposition home or self-care (01) ==
LOC: LAB.S 13:47
PROVIDERS: ATTEND Internal Medicine
DX: R31.9 Hematuria, unspecified (principal)
CPT/HCPCS: 81001

== ENCOUNTER 2020-03-31 07:26 | Outpatient (CLI) | payer MEDICARE, BC ==
[2020-03-31 14:45] LABS: BASOPHILS # (AUTO) 0.1 10^3/uL (0.0-0.1); BASOPHILS % (AUTO) 1.2 %; EOSINOPHILS # (AUTO) 0.2 10^3/uL (0.0-0.7); EOSINOPHILS % (AUTO) 4.5 %; HGB - HEMOGLOBIN 14.7 g/dL (12.0-16.0); LYMPHOCYTES # (AUTO) 1.9 10^3/uL (1.5-3.5); LYMPHOCYTES % (AUTO) 45.1 %; MEAN CORPUSCULAR HEMOGLOBIN 29.6 pg (27.0-31.0); MEAN CORPUSCULAR VOLUME 92.6 fL (81.0-99.0); MEAN PLATELET VOLUME 10.4 fL (7.9-10.8); MONOCYTES # (AUTO) 0.5 10^3/uL (0.0-1.0); MONOCYTES % (AUTO) 10.9 %; NEUTROPHILS # (AUTO) 1.6 10^3/uL (1.5-6.6); NEUTROPHILS % (AUTO) 38.1 %; PLT - PLATELET COUNT 248 10^3/uL (130-450); RED BLOOD COUNT 4.97 10^6/uL (4.20-5.40); RED CELL DISTRIBUTION WIDTH 12.1 % (12.0-15.0); WHITE BLOOD COUNT 4.2 x10^3/uL (4.8-10.8)
[2020-03-31 15:09] LABS: ALBUMIN 4.4 g/dL (3.2-5.5); ALBUMIN/GLOBULIN RATIO 1.6 (1.0-2.2); ALKALINE PHOSPHATASE 70 IU/L (42-121); ALT ALANINE AMINOTRANSFERASE 21 IU/L (10-60); AST ASPARTATE AMINOTRANSFERASE 25 IU/L (10-42); BILIRUBIN,TOTAL 0.8 mg/dL (0.2-1.0); BUN - BLOOD UREA NITROGEN 13 mg/dL (6-20); CALCIUM 9.4 mg/dL (8.5-10.3); CARBON DIOXIDE - CO2 28 mmol/L (21-32); CHLORIDE 101 mmol/L (101-111); CHOL/HDL RATIO 2.3 (<4.4); CHOLESTEROL 201 mg/dL; CREATININE 0.9 mg/dL (0.4-1.0); GLUCOSE 88 mg/dL (70-100); HDL CHOLESTEROL 88 mg/dL; LDL CHOLESTEROL,CALCULATED 100 mg/dL; LDL/HDL RATIO 1.1 (<4.4); TOTAL PROTEIN 7.2 g/dL (6.7-8.2); VLDL CHOLESTEROL 13 mg/dL
== END 2020-03-31 07:27 | disposition home or self-care (01) ==
LOC: LAB.S 07:26
PROVIDERS: ATTEND Internal Medicine
DX: I10 Essential (primary) hypertension (principal); E78.5 Hyperlipidemia, unspecified; E03.9 Hypothyroidism, unspecified
CPT/HCPCS: 36415; 80053; 80061; 83721; 84443; 85025

== ENCOUNTER 2020-05-21 09:07 | Day surgery (SDC) | payer MEDICARE ==
[2020-05-21] MEDS ORDERED: LACTATED RINGERS 1,000 ML IV ONE ×2 (09:39→12:07)
[2020-05-21] MEDS ORDERED: MIDAZOLAM 2 MG/2 ML VIAL ONE ×3 (10:35→11:28)
[2020-05-21] MEDS ORDERED: fentaNYL 250 MCG/5 ML VIAL ONE (10:35)
--- NOTE | 2020-05-21 11:12 | HISTORY & PHYSICAL EXAMINATION ---
Chief Complaint - Chief Complaint Chief Complaint: here for colon cancer screening History of Present Illness - History Obtained From Records Reviewed: yes History obtained from: pt Exam Limitations: none - History of Present Illness HPI Comment/Other: Here for routine colon cancer screening. Last screening over 10 years ago. No anemia. 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, Other HEENT: reports: Tonsil/Adenoidectomy Meds/Allgy - Home Medications Home Medications: Ambulatory Orders Medication Instructions Recorded Confirmed Aspirin Chewable [[place] 81 mg PO DAILY 05/20/20 05/20/20 Aspirin] Atorvastatin [Lipitor] 10 mg PO DAILY 05/20/20 05/20/20 Levothyroxine [Synthroid] 75 mg PO DAILY 05/20/20 05/20/20 Losartan Potassium 50 mg PO DAILY 05/20/20 05/20/20 - Allergies Allergies/Adverse Reactions: Allergies Allergy/AdvReac Type Severity Reaction Status Date / Time mold Allergy Unknown Verified 05/20/20 14:01 Penicillins Allergy Unknown Verified 05/20/20 14:01 Sulfa (Sulfonamide Allergy Unknown Verified 05/20/20 14:01 Antibiotics) Review of Systems - Constitutional Constitutional: reports: Fatigue (10 pt ros as above otherwise unremarkable) Exam - Vital Signs Reviewed Vital Signs: Yes Vital Signs: Vital Signs x48h Temp Pulse Resp BP Pulse Ox 05/21/20 09:22 36.3 C L 77 16 157/88 H 98 - Physical Exam General Appearance: positive: No acute distress, Alert Eyes Bilateral: positive: Normal inspection, PERRL ENT: positive: No signs of dehydration Neck: positive: No JVD, Trachea midline Respiratory: positive: No respiratory distress, Breath sounds nml Cardiovascular: positive: Regular rate & rhythm Abdomen: positive: Non-tender, No distention Neurologic/Psychiatric: positive: Oriented x3 Conclusion/Plan - Problem List (1) Colon cancer screening Conclusion/Plan: Plan colonoscopy. parq held and consent obtained
[2020-05-21 12:47] VITALS: BP 111/71
== END 2020-05-21 09:08 | disposition home or self-care (01) ==
LOC: SDS 09:07
PROVIDERS: ATTEND Surgery
PROC: 0DBM8ZZ Excision of Descending Colon, Via Natural or Artificial Opening Endoscopic (ICD-10-PCS; principal; 2020-05-21 10:30)
DX: Z12.11 Encounter for screening for malignant neoplasm of colon (principal); K63.5 Polyp of colon; K57.30 Diverticulosis of large intestine without perforation or abscess without bleeding; Q27.33 Arteriovenous malformation of digestive system vessel; K64.4 Residual hemorrhoidal skin tags; I10 Essential (primary) hypertension; E78.00 Pure hypercholesterolemia, unspecified; H54.7 Unspecified visual loss; E03.9 Hypothyroidism, unspecified; Z79.82 Long term (current) use of aspirin; Z79.899 Other long term (current) drug therapy
CPT/HCPCS: 45385; J3010; J7120

== ENCOUNTER 2020-08-01 13:25 | Outpatient (CLI) | payer MEDICARE ==
--- NOTE | 2020-08-03 12:21 | Mammography Report ---
BILATERAL DIGITAL SCREENING MAMMOGRAM 3D/2D: 08/01/2020 CLINICAL: Routine screening. Comparison is made to exams dated: 10/16/2017 mammogram, 11/05/2015 mammogram, 06/27/2013 mammogram, mammogram, 04/01/2010 mammogram, and 12/23/2007 mammogram - [facility]. The re are scattered fibroglandular elements in both breasts. No significant masses, calcifications, or other findings are seen in either breast. There has been no significant interval change. IMPRESSION: NEGATIVE There is no mammographic evidence of malignancy. A 1 year screening mammogram is recommended. This exam was interpreted at Station ID: [id number]. NOTE: For mammograms, a report in lay terms will be sent to the patient. Approximately 15% of breast malignancies will not be visualized mammographically. In the management of a palpable breast mass, a negative mammogram must not discourage biopsy of a clinically suspicious lesion. Electronically Signed By: Santana Gant M.D., jr/binu:08/02/2020 09:19:24 ACR BI-RADS Category 1: Negative 3341F PARENCHYMAL PATTERN: (A) - The breast(s) demonstrate(s) scattered fibroglandular densities. BI-RADS CATEGORY: (1) - 1 RECOMMENDATION: (ANNUAL) - Recommend routine annual screening mammography. [id number] 1 year screening LATERALITY: (B)
== END 2020-08-01 13:26 | disposition home or self-care (01) ==
LOC: DI.S 13:25
PROVIDERS: ATTEND Internal Medicine
DX: Z12.31 Encounter for screening mammogram for malignant neoplasm of breast (principal)

== ENCOUNTER 2020-09-30 08:38 | Outpatient (CLI) | payer MEDICARE ==
[2020-09-30 15:46] LABS: ALBUMIN 4.1 g/dL (3.2-5.5); ALBUMIN/GLOBULIN RATIO 1.4 (1.0-2.2); ALKALINE PHOSPHATASE 59 IU/L (42-121); ALT ALANINE AMINOTRANSFERASE 20 IU/L (10-60); AST ASPARTATE AMINOTRANSFERASE 21 IU/L (10-42); BUN - BLOOD UREA NITROGEN 12 mg/dL (6-20); CALCIUM 9.1 mg/dL (8.5-10.3); CARBON DIOXIDE - CO2 31 mmol/L (21-32); CHLORIDE 100 mmol/L (101-111); CHOL/HDL RATIO 2.3 (<4.4); CHOLESTEROL 184 mg/dL; CREATININE 0.9 mg/dL (0.4-1.0); GFR - MDRD 62 (>89); GLUCOSE 85 mg/dL (70-100); HDL CHOLESTEROL 80 mg/dL; LDL CHOLESTEROL,CALCULATED 90 mg/dL; LDL/HDL RATIO 1.1 (<4.4); POTASSIUM 4.1 mmol/L (3.5-5.0); SODIUM 138 mmol/L (135-145); TOTAL PROTEIN 7.1 g/dL (6.7-8.2); TRIGLYCERIDES 70 mg/dL; VLDL CHOLESTEROL 14 mg/dL
[2020-09-30 15:57] LABS: THYROID STIMULATING HORMONE 2.69 uIU/mL (0.34-5.60)
== END 2020-09-30 08:39 | disposition home or self-care (01) ==
LOC: LAB.S 08:38
PROVIDERS: ATTEND Internal Medicine
DX: I10 Essential (primary) hypertension (principal); E78.5 Hyperlipidemia, unspecified; E03.9 Hypothyroidism, unspecified
CPT/HCPCS: 36415; 80053; 80061; 83721; 84443

== ENCOUNTER 2021-07-15 09:49 | Outpatient (CLI) | payer MEDICARE ==
[2021-07-15 15:58] LABS: BASOPHILS % (AUTO) 0.7 %; EOSINOPHILS # (AUTO) 0.1 10^3/uL (0.0-0.7); EOSINOPHILS % (AUTO) 2.2 %; HCT - HEMATOCRIT 45.3 % (37.0-47.0); HGB - HEMOGLOBIN 14.7 g/dL (12.0-16.0); LYMPHOCYTES # (AUTO) 1.2 10^3/uL (1.5-3.5); LYMPHOCYTES % (AUTO) 22.4 %; MEAN CORPUSCULAR HEMOGLOBIN 29.6 pg (27.0-31.0); MEAN CORPUSCULAR HGB CONC 32.5 g/dL (32.0-36.0); MEAN CORPUSCULAR VOLUME 91.1 fL (81.0-99.0); MEAN PLATELET VOLUME 10.6 fL (7.9-10.8); MONOCYTES # (AUTO) 0.4 10^3/uL (0.0-1.0); MONOCYTES % (AUTO) 8.1 %; NEUTROPHILS # (AUTO) 3.6 10^3/uL (1.5-6.6); NEUTROPHILS % (AUTO) 66.4 %; PLT - PLATELET COUNT 209 10^3/uL (130-450); RED BLOOD COUNT 4.97 10^6/uL (4.20-5.40); RED CELL DISTRIBUTION WIDTH 12.4 % (12.0-15.0); WHITE BLOOD COUNT 5.4 x10^3/uL (4.8-10.8)
[2021-07-15 16:30] LABS: ALBUMIN 4.3 g/dL (3.2-5.5); ALBUMIN/GLOBULIN RATIO 1.7 (1.0-2.2); ALKALINE PHOSPHATASE 63 IU/L (42-121); ALT ALANINE AMINOTRANSFERASE 16 IU/L (10-60); AST ASPARTATE AMINOTRANSFERASE 19 IU/L (10-42); BILIRUBIN,TOTAL 0.7 mg/dL (0.2-1.0); BUN - BLOOD UREA NITROGEN 17 mg/dL (6-20); CALCIUM 9.5 mg/dL (8.5-10.3); CARBON DIOXIDE - CO2 31 mmol/L (21-32); CHLORIDE 101 mmol/L (101-111); CHOL/HDL RATIO 1.9 (<4.4); CHOLESTEROL 165 mg/dL; GFR - MDRD 54 (>89); GLUCOSE 85 mg/dL (70-100); HDL CHOLESTEROL 88 mg/dL; LDL CHOLESTEROL,CALCULATED 67 mg/dL; LDL/HDL RATIO 0.8 (<4.4); SODIUM 138 mmol/L (135-145); TOTAL PROTEIN 6.8 g/dL (6.7-8.2); TRIGLYCERIDES 52 mg/dL; VLDL CHOLESTEROL 10 mg/dL
[2021-07-15 17:35] LABS: THYROID STIMULATING HORMONE 1.76 uIU/mL (0.34-5.60)
== END 2021-07-15 09:50 | disposition home or self-care (01) ==
LOC: LAB.S 09:49
PROVIDERS: ATTEND Registered Nurse
DX: I10 Essential (primary) hypertension (principal); E03.9 Hypothyroidism, unspecified; E78.5 Hyperlipidemia, unspecified; Z79.899 Other long term (current) drug therapy
CPT/HCPCS: 36415; 80053; 80061; 83721; 84443; 85025

== ENCOUNTER 2021-08-05 09:44 | Outpatient (CLI) | payer MEDICARE ==
--- NOTE | 2021-08-05 17:37 | DEXA Report ---
PROCEDURE: Dexa Spine and/or Hip INDICATIONS: OSTEOPENIA TECHNIQUE: Dual energy x-ray absorptiometry (DXA) was performed on a [employer] System. Regions measur ed are the AP Spine, femoral neck, and if needed forearm. COMPARISON: 10/16/2017. FINDINGS: Lumbar Spine: Bone Mineral Density 1.054 g/cm/cm,T score -1.1. There is interval 6.9% increase in total lumbar s pine bone mineral density. Left Hip: Bone Mineral Density 0.724 g/cm/cm,T score -2.3. There is interval 2.4% decrease in left total hip b one mineral density. Left Femoral Neck: Bone Mineral Density 0.718 g/cm/cm, T score -2.3. (T score greater or equal to -1.0: NORMAL) (T score from -1.1 to -2.4: OSTEOPENIA) (T score less than or equal to -2.5 to: OSTEOPOROSIS) Impression: Osteopenia. Patients with diagnosis of osteoporosis or osteopenia should have regular bone mineral density assess ment. For those eligible for Medicare, routine testing is allowed once every 2 years. Testing frequ ency can be increased for patients who have rapidly progressing disease or for those who are receivin g medical therapy to restore bone mass. Reviewed by: Andrew Castellon MD on 08/05/2021 5:35 PM PDT Approved by: Andrew Castellon MD on 08/05/2021 5:35 PM PDT Station ID: [id number]
== END 2021-08-05 09:45 | disposition home or self-care (01) ==
LOC: DI 09:44
PROVIDERS: ATTEND Registered Nurse
DX: M85.89 Other specified disorders of bone density and structure, multiple sites (principal)

== ENCOUNTER 2022-08-22 08:11 | Outpatient (CLI) | payer MEDICARE ==
[2022-08-22 15:24] LABS: BASOPHILS # (AUTO) 0.1 10^3/uL (0.0-0.1); BASOPHILS % (AUTO) 1.4 %; EOSINOPHILS # (AUTO) 0.2 10^3/uL (0.0-0.7); EOSINOPHILS % (AUTO) 4.1 %; HCT - HEMATOCRIT 46.5 % (37.0-47.0); HGB - HEMOGLOBIN 14.7 g/dL (12.0-16.0); LYMPHOCYTES # (AUTO) 1.5 10^3/uL (1.5-3.5); LYMPHOCYTES % (AUTO) 36.5 %; MEAN CORPUSCULAR HEMOGLOBIN 29.3 pg (27.0-31.0); MEAN CORPUSCULAR HGB CONC 31.6 g/dL (32.0-36.0); MEAN CORPUSCULAR VOLUME 92.8 fL (81.0-99.0); MEAN PLATELET VOLUME 10.5 fL (7.9-10.8); MONOCYTES # (AUTO) 0.4 10^3/uL (0.0-1.0); MONOCYTES % (AUTO) 10.5 %; NEUTROPHILS % (AUTO) 47.3 %; PLT - PLATELET COUNT 221 10^3/uL (130-450); RED BLOOD COUNT 5.01 10^6/uL (4.20-5.40); RED CELL DISTRIBUTION WIDTH 12.7 % (12.0-15.0); WHITE BLOOD COUNT 4.2 x10^3/uL (4.8-10.8)
[2022-08-22 15:26] LABS: THYROID STIMULATING HORMONE 2.2 uIU/mL (0.34-5.60)
[2022-08-22 15:46] LABS: ALBUMIN 4.4 g/dL (3.2-5.5); ALBUMIN/GLOBULIN RATIO 1.6 (1.0-2.2); ALKALINE PHOSPHATASE 71 IU/L (42-121); ALT ALANINE AMINOTRANSFERASE 23 IU/L (10-60); AST ASPARTATE AMINOTRANSFERASE 25 IU/L (10-42); BILIRUBIN,TOTAL 0.6 mg/dL (0.2-1.0); BUN - BLOOD UREA NITROGEN 17 mg/dL (6-20); CALCIUM 9.5 mg/dL (8.5-10.3); CARBON DIOXIDE - CO2 32 mmol/L (21-32); CHLORIDE 104 mmol/L (101-111); CHOL/HDL RATIO 2.2 (<4.4); CHOLESTEROL 192 mg/dL; GFR - MDRD 54 (>89); GLUCOSE 88 mg/dL (70-100); HDL CHOLESTEROL 88 mg/dL; LDL CHOLESTEROL,CALCULATED 93 mg/dL; LDL/HDL RATIO 1.1 (<4.4); POTASSIUM 4.4 mmol/L (3.5-5.0); SODIUM 141 mmol/L (135-145); TOTAL PROTEIN 7.2 g/dL (6.7-8.2); TRIGLYCERIDES 53 mg/dL; VLDL CHOLESTEROL 11 mg/dL
== END 2022-08-22 08:12 | disposition home or self-care (01) ==
LOC: LAB.S 08:11
PROVIDERS: ATTEND Registered Nurse
DX: E78.5 Hyperlipidemia, unspecified (principal); E03.9 Hypothyroidism, unspecified; Z79.899 Other long term (current) drug therapy
CPT/HCPCS: 36415; 80053; 80061; 83721; 84443; 85025

== ENCOUNTER 2022-11-02 08:00 | Outpatient (CLI) | payer MEDICARE ==
--- NOTE | 2022-11-02 16:14 | XRAY Report ---
PROCEDURE: Hand 3 View LT INDICATIONS: LEFT HAND/WRIST PAIN TECHNIQUE: 3 views of the hand(s) acquired. COMPARISON: None. FINDINGS: Bones: No fractures or dislocations. No suspicious bony lesions. Soft tissues: No suspicious soft tissue calcifications or masses. IMPRESSION: No fracture. No osseous lesion. If symptoms and/or clinical concern for pathology persists, further a ssessment with repeat plain film radiographs (7-10 days) or advanced imaging (CT, MR, bone scan) shou ld be considered. Reviewed by: Sara Meek MD, PhD on 11/02/2022 4:12 PM PDT Approved by: Sara Meek MD, PhD on 11/02/2022 4:12 PM PDT Station ID: [id number]
--- NOTE | 2022-11-02 16:15 | XRAY Report ---
PROCEDURE: Wrist 4 View LT INDICATIONS: LEFT HAND/WRIST PAIN TECHNIQUE: 4 views of the wrist were acquired. COMPARISON: None. FINDINGS: Bones: No fractures or dislocations. No suspicious bony lesions. Soft tissues: No suspicious soft tissue calcifications or masses. IMPRESSION: No fracture. No osseous lesion. If symptoms and/or clinical concern for pathology persists, further a ssessment with repeat plain film radiographs (7-10 days) or advanced imaging (CT, MR, bone scan) shou ld be considered. Reviewed by: Sara Meek MD, PhD on 11/02/2022 4:13 PM PDT Approved by: Sara Meek MD, PhD on 11/02/2022 4:13 PM PDT Station ID: [id number]
== END 2022-11-02 23:59 | disposition home or self-care (01) ==
LOC: DI.WOS 08:00
PROVIDERS: ATTEND Physician Assistant Surgical
DX: S62.102K Fracture of unspecified carpal bone, left wrist, subsequent encounter for fracture with nonunion (principal)

== ENCOUNTER 2022-11-28 08:00 | Outpatient (CLI) | payer MEDICARE ==
--- NOTE | 2022-11-28 15:53 | XRAY Report ---
PROCEDURE: Wrist 3 View LT INDICATIONS: LEFT WRIST PAIN TECHNIQUE: 2 views of the wrist were acquired. COMPARISON: Left wrist x-ray series 11/02/2022. FINDINGS: Bones: No fractures or dislocations. No suspicious bony lesions. Mild first CMC joint osteoarthri tis. Soft tissues: No suspicious soft tissue calcifications or masses. IMPRESSION: No fracture. No acute osseous lesion. If symptoms and/or clinical concern for pathology persists, fur ther assessment with advanced imaging (CT, MR) should be considered. Reviewed by: Sara Meek MD, PhD on 11/28/2022 3:52 PM PDT Approved by: Sara Meek MD, PhD on 11/28/2022 3:52 PM PDT Station ID: [id number]
--- NOTE | 2022-11-28 15:53 | XRAY Report ---
PROCEDURE: Hand 3 View LT INDICATIONS: LEFT HAND PAIN TECHNIQUE: 3 views of the hand(s) acquired. COMPARISON: [X-ray series 11/02/2022. FINDINGS: Bones: No fractures or dislocations. No suspicious bony lesions. Mild first CMC joint and MCP joint osteoarthritis. Soft tissues: No suspicious soft tissue calcifications or masses. IMPRESSION: No acute osseous lesion. If symptoms and/or clinical concern for pathology persists, further assessme nt with repeat advanced imaging (CT, MR) should be considered. Mild first CMC joint and MCP joint arthritis. Reviewed by: Sara Meek MD, PhD on 11/28/2022 3:51 PM PDT Approved by: Sara Meek MD, PhD on 11/28/2022 3:51 PM PDT Station ID: [id number]
== END 2022-11-28 23:59 | disposition home or self-care (01) ==
LOC: DI.WOS 08:00
PROVIDERS: ATTEND Physician Assistant Surgical
DX: S62.102K Fracture of unspecified carpal bone, left wrist, subsequent encounter for fracture with nonunion (principal); S63.592A Other specified sprain of left wrist, initial encounter; M19.042 Primary osteoarthritis, left hand; M18.12 Unilateral primary osteoarthritis of first carpometacarpal joint, left hand

== ENCOUNTER 2022-12-09 12:31 | Outpatient (CLI) | payer MEDICARE ==
--- NOTE | 2022-12-11 13:07 | MRI Report ---
PROCEDURE: WRIST WO - LT INDICATIONS: FRACTURE OF MIDDLE THIRD OF NAVICULAR BONE LT WRIS TECHNIQUE: Noncontrast coronal T1 spin echo, proton density fast spin echo and T2 fast spin echo with fat satura tion; coronal 3-D gradient echo, axial T1 spin echo and T2 fast spin echo with fat saturation, sagitt al T1 spin echo through the wrist. COMPARISON: Left wrist and hand radiographs 11/28/2022 and 11/02/2022 FINDINGS: Image quality: Excellent. Bones and cartilage: The carpal bones are normally aligned. Osseous edema is seen at the volar aspec t of the hamate hook and the trapezial ridge. A well-defined fracture line is not definitely visualiz ed. The scaphoid is intact. No evidence for avascular necrosis. Mild degenerative changes are seen a t the 1st carpometacarpal and triscaphe joints as well as the radiocarpal articulation with there is mild subchondral edema. Carpal ligaments: The scapholunate and lunotriquetral ligaments appear intact. On sagittal images, the pisohamate ligament appears intact. Triangular fibrocartilage complex: There is a large full-thickness defect within the central triangul ar fibrocartilage disc, which is likely degenerative. A small amount of fluid is seen in the distal r adioulnar joint. Tendons and soft tissues: Mild volar bowing of the flexor retinaculum. The carpal tunnel structures appear normal, including the median nerve. The ulnar nerve appears normal within Guyon's canal. Mild extensor carpi ulnaris tendinosis. The remaining extensor tendon compartments demonstrate normal mor phology, without pathologic tendon sheath fluid. No soft tissue ganglion cysts. Nonspecific subcuta neous edema is seen throughout the wrist that is more prominent dorsally. IMPRESSION: 1.Mild osseous edema at the hamate hook and the trapezial ridge without definite fracture line, most compatible with osseous contusions. Scaphoid is intact. 2.Large full-thickness defect within the triangular fibrocartilage disc, which may be degenerative. S mall distal radioulnar joint effusion. 3.Mild extensor carpi ulnaris tendinosis. 4.Mild osteoarthrosis. Reviewed by: Terrance Archuleta MD on 12/11/2022 1:05 PM PST Approved by: Terrance Archuleta MD on 12/11/2022 1:05 PM PST Station ID: [id number]
== END 2022-12-09 12:32 | disposition home or self-care (01) ==
LOC: DI 12:31
PROVIDERS: ATTEND Physician Assistant Surgical
DX: M67.932 Unspecified disorder of synovium and tendon, left forearm (principal); M25.432 Effusion, left wrist; R60.0 Localized edema

== ENCOUNTER 2023-08-22 07:46 | Outpatient (CLI) | payer MEDICARE ==
[2023-08-22 15:43] LABS: EOSINOPHILS # (AUTO) 0.1 10^3/uL (0.0-0.7); EOSINOPHILS % (AUTO) 3.1 %; HCT - HEMATOCRIT 46.5 % (37.0-47.0); HGB - HEMOGLOBIN 14.6 g/dL (12.0-16.0); LYMPHOCYTES # (AUTO) 1.2 10^3/uL (1.5-3.5); LYMPHOCYTES % (AUTO) 30.8 %; MEAN CORPUSCULAR HEMOGLOBIN 28.7 pg (27.0-31.0); MEAN CORPUSCULAR HGB CONC 31.4 g/dL (32.0-36.0); MEAN CORPUSCULAR VOLUME 91.5 fL (81.0-99.0); MEAN PLATELET VOLUME 9.9 fL (7.9-10.8); MONOCYTES # (AUTO) 0.3 10^3/uL (0.0-1.0); MONOCYTES % (AUTO) 8.3 %; NEUTROPHILS # (AUTO) 2.2 10^3/uL (1.5-6.6); NEUTROPHILS % (AUTO) 56.5 %; PLT - PLATELET COUNT 233 10^3/uL (130-450); RED BLOOD COUNT 5.08 10^6/uL (4.20-5.40); RED CELL DISTRIBUTION WIDTH 12.8 % (12.0-15.0); WHITE BLOOD COUNT 3.9 x10^3/uL (4.8-10.8)
[2023-08-22 16:07] LABS: ALBUMIN 4.6 g/dL (3.2-5.5); ALBUMIN/GLOBULIN RATIO 1.6 (1.0-2.2); ALKALINE PHOSPHATASE 73 IU/L (42-121); ALT ALANINE AMINOTRANSFERASE 20 IU/L (10-60); AST ASPARTATE AMINOTRANSFERASE 25 IU/L (10-42); BILIRUBIN,TOTAL 0.8 mg/dL (0.2-1.0); BUN - BLOOD UREA NITROGEN 9 mg/dL (6-20); CALCIUM 9.8 mg/dL (8.5-10.3); CARBON DIOXIDE - CO2 31 mmol/L (21-32); CHLORIDE 104 mmol/L (101-111); CHOL/HDL RATIO 2.9 (<4.4); CHOLESTEROL 194 mg/dL; CREATININE 0.9 mg/dL (0.6-1.3); GFR - MDRD 61 (>89); GLUCOSE 92 mg/dL (74-104); HDL CHOLESTEROL 68 mg/dL; LDL CHOLESTEROL,CALCULATED 106 mg/dL; LDL/HDL RATIO 1.6 (<4.4); POTASSIUM 4.1 mmol/L (3.5-4.5); SODIUM 139 mmol/L (135-145); TOTAL PROTEIN 7.5 g/dL (6.4-8.9); TRIGLYCERIDES 99 mg/dL; VLDL CHOLESTEROL 20 mg/dL
[2023-08-22 16:12] LABS: THYROID STIMULATING HORMONE 1.39 uIU/mL (0.34-5.60)
== END 2023-08-22 07:47 | disposition home or self-care (01) ==
LOC: LAB.S 07:46
PROVIDERS: ATTEND Registered Nurse
DX: Z13.228 Encounter for screening for other metabolic disorders (principal); Z13.220 Encounter for screening for lipoid disorders; Z13.29 Encounter for screening for other suspected endocrine disorder; Z13.0 Encounter for screening for diseases of the blood and blood-forming organs and certain disorders involving the immune mechanism
CPT/HCPCS: 36415; 80053; 80061; 83721; 84443; 85025

== ENCOUNTER 2023-09-28 07:47 | Outpatient (CLI) | payer MEDICARE ==
--- NOTE | 2023-09-28 12:49 | DEXA Report ---
PROCEDURE: Dexa Spine and/or Hip INDICATIONS: POST MENOPAUSAL TECHNIQUE: Dual energy x-ray absorptiometry (DXA) was performed on a [employer] System. Regions measur ed are the AP Spine, femoral neck, and if needed forearm. COMPARISON: DEXA 08/06/2019 FINDINGS: Lumbar Spine: Bone Mineral Density: 1.105 g/cm/cm,T score: -0.6, compared to -1.1. Left Femoral Neck: Bone Mineral Density: 0.667 g/cm/cm, T score: -2.7, compared to -2.3. Left Hip: Bone Mineral Density: 0.701 g/cm/cm,T score: -2.4, compared to -2.3. FRAX risk factors: None given. 10 year risk of major osteoporotic fracture: Not calculated major osteoporotic fracture = hip, clinical vertebral, proximal humerus, distal forearm 10 year risk of hip fracture: Not calculated% (T score greater or equal to -1.0: NORMAL) (T score from -1.1 to -2.4: OSTEOPENIA) (T score less than or equal to -2.5 to: OSTEOPOROSIS) Impression: By WHO criteria, this patient has osteoporosis in the left femoral neck with severe osteopenia in the left hip. Overall there has been improvement of bone mineral density. Patients with diagnosis of osteoporosis or osteopenia should have regular bone mineral density assess ment. For those eligible for Medicare, routine testing is allowed once every 2 years. Testing frequ ency can be increased for patients who have rapidly progressing disease or for those who are receivin g medical therapy to restore bone mass. Reviewed by: Randa Reed MD on 09/28/2023 12:47 PM PDT Approved by: Randa Reed MD on 09/28/2023 12:47 PM PDT Station ID: [id number]
== END 2023-09-28 07:48 | disposition home or self-care (01) ==
LOC: DI 07:47
PROVIDERS: ATTEND Registered Nurse
DX: M81.0 Age-related osteoporosis without current pathological fracture (principal); Z78.0 Asymptomatic menopausal state